=== PATIENT | female | born 1950 | race African-American/Black ===

== ENCOUNTER 2016-09-24 13:39 | Inpatient (IN) ==
--- NOTE | 2016-09-24 16:00 | Emergency Department Note ---
Arrival - Arrival Chief Complaint: Abdominal / Flank Pain Stated Complaint: BLOOD IN ABD ED Nursing Triage Note: Pt states during dialysis (PD) at home she noticed blood in her dialysis cath and pain in her right side starting today. Mode of Arrival: Ambulatory Limitations: No Limitations Source: Patient Time Seen by Provider: 09/24/16 15:50 - History of Present Illness HPI Narrative: This 65-year-old black female with polycystic kidney disease who is a home peritoneal dialysis patient presents after trying to dialyze this morning and getting bloody fluid on return. The patient since beginning dialysis has had severe right upper quadrant discomfort and prior to starting dialysis had similar complaints on the left which persist to this time. The patient did not complete her dialysis because of this situation and still his dialysate onboard. During the process she does not recall anything unusual and has never had something like this occur in the past. She denies chills, fever, nausea, vomiting, or any recent falls or blows to the abdominal cavity. She currently does not appear in any acute distress. Onset (ago): hour(s) (onset of symptoms 2 hours ago.) Allergies/Adverse Reactions: Allergies Allergy/AdvReac Type Severity Reaction Status Date / Time cefuroxime [From Ceftin] Allergy Nausea Verified 09/24/16 13:40 Penicillins Allergy Unknown/Unable Verified 09/24/16 13:40 to obtain Sulfa (Sulfonamide Allergy Unknown/Unable Verified 09/24/16 13:40 Antibiotics) to obtain Home Medications: Home Medications Medication Instructions Recorded Confirmed Type Ferrous Fumarate [Ferrimin 150] 456 mg PO DAILY 02/12/16 02/12/16 History Ondansetron Tab [Zofran Tab] 4 mg PO Q4H PRN 02/12/16 02/12/16 History Potassium Chloride 20 meq PO BID 02/12/16 02/12/16 History Promethazine Tab [Phenergan Tab] 25 mg PO Q6H #14 tablet 02/12/16 Rx Sodium Bicarbonate 325 mg PO BID 02/12/16 02/12/16 History Vit B Cmplx 3/FA/Vit C/Biotin 1 each PO DAILY 02/12/16 02/12/16 History [Nephro-Julianne Rx Tablet] metroNIDAZOLE TAB [Flagyl Cap/Tab] 500 mg PO TID 02/12/16 02/12/16 History Review of System - Review of System 12 point system: reviewed and no additional remarkable complaints except as stated - Review of System Constitutional: Present: as per HPI Gastrointestinal: Present: as per HPI Genitourinary female: Present: as per HPI Medical,Surgical,& Family Hx - Medical History Renal: History of: Dialysis (PD), Renal Failure - Social History Smoking Status: Never smoker Frequency of Alcohol Use: None Type of Drug Use: None Exam Physical Examination: GENERAL: Well developed, well nourished black female in no acute distress. HEENT: Normocephalic. No trauma. Moist mucous membranes. EOMI. PERRLA. NECK: Supple. No adenopathy. CARDIAC: Regular. 2/4 systolic murmur. CHEST: Clear to auscultation. No respiratory distress. ABDOMEN: Soft. Tender right and left upper quadrants. Hyperactive bowel sounds. EXTREMITIES: No trauma. Normal ROM. No pedal edema. SKIN: No diaphoresis. No rash. NEURO: Alert. Neuro intact No focal deficits. Vital Signs: Vital Signs Temperature 97.6 F 09/24/16 16:40 Pulse Rate 70 09/24/16 16:40 Respiratory Rate 20 09/24/16 16:40 Blood Pressure 127/79 09/24/16 16:40 O2 Sat by Pulse Oximetry 96 09/24/16 14:50 Course - Reevaluation(s) Reevaluation #1: Discussed with patient results per studies which would indicate burrowing pancreatitis as possible cause of her bloody dialysate. She will need admission for further evaluation. - Consultations Consultation #1: Discussed with hospitalist service who will admit for further evaluation treatment. Results - Labs CBC & BMP: 09/24/16 15:55 09/24/16 15:55 Labs: I reviewed the laboratory noted the expected abnormal renal numbers but also noted the elevated lipase. - Diagnostic Findings Procedure: CT Abdomen and Pelvis: image reviewed by me, report reviewed by me ( no damage to peritoneal catheter. Status post hysterectomy and cholecystectomy. No evidence of abscess or intra-abdominal injury. Pre- dialysate noted. No interval change from previous CT.) Disposition Clinical Impression: bloody peritoneal dialysate, pancreatitis Case discussed with: patient, patient's family Condition: Stable Instructions: Pancreatitis (ED) Time of Disposition: 18:23
--- NOTE | 2016-09-24 16:26 | CT Report ---
History: Right-sided abdominal pain. Bloody dialysate. Polycystic kidney disease Date: 09/24/2016 Study: CT abdomen and pelvis without contrast Comparison exam: October 15, 2014 study Technique: Spiral CT sections were obtained from the lung bases to the pubic symphysis without contrast. Total DLP measures 240.2 mGy*cm. CT abdomen: The partially visualized lung bases are clear. There is a small amount of pneumoperitoneum under the right hemidiaphragm, though this can be an expected finding in patients who are on peritoneal dialysis such as this one. There is mild to moderate free fluid in both upper quadrants and in the pelvis, though this can also be seen with peritoneal dialysis and is grossly similar to the comparison study. The gallbladder is surgically absent. The liver, spleen, pancreas, bile ducts, and adrenal glands are unremarkable. There is bilateral renal enlargement. There are numerous water density and at least mildly complex partially calcified renal cysts throughout both kidneys, grossly similar to the comparison study. There is no obvious asymmetric new lesion which is highly suspicious for renal cell carcinoma by this noncontrast exam. There is no aneurysm of the mildly calcified abdominal aorta. There is a ventral wall hernia containing fat just superior to the umbilicus. There is a peritoneal dialysis catheter which traverses the anterior abdominal wall immediately inferior to the level of umbilicus and is positioned with its loop in the left mid abdomen. CT pelvis: The appendix is identified and appears normal. There is some free fluid in the pelvis similar to the previous study as discussed above. There is no obvious lymphadenopathy by short axis diameter criteria. There is no obvious hematocrit effect of the free fluid within the pelvis. Impression: Overall the exam is similar to the comparison study. There is free fluid in the upper abdomen and pelvis and minimal pneumoperitoneum which both can be seen with peritoneal dialysis. There is no brayan abscess. The amount of free fluid is similar to the comparison study. There has been prior cholecystectomy and hysterectomy. There is evidence of polycystic kidney disease. There is a ventral wall hernia containing fat. There is no obvious abnormality of the peritoneal dialysis catheter. There has been previous hysterectomy PROCEDURE INTERPRETED AT [facility] DEPARTMENT OF RADIOLOGY Final Report Signed by: Dr. Carmen Cage
[2016-09-24 16:41] LABS: Basophils % 0.3 % (0.0-0.8); Eosinophils # 0.2 10*3/uL (0.0-0.87); Eosinophils % 1.5 % (0.00-10.9); Hematocrit 38.5 VOL% (35.7-47.0); Hemoglobin 12.6 GM/DL (12.0-16.0); Immature Granulocytes % 0.3 %; Immature Granulocytes Absolute 0.03 #; Lymphocytes # 1.8 10*3/uL (1.4-4.0); Lymphocytes % 16.2 % (21.3-54.2); Mean Corpuscular HGB Conc 32.7 GM/DL (32-36); Mean Corpuscular Hemoglobin 28 PG (27-34); Mean Corpuscular Volume 86.9 FL (87-102); Mean Platelet Volume 10.6 FL (9.6-12.0); Monocytes # 0.4 10*3/uL (0.11-0.8); Monocytes % 3.8 % (1.7-12.7); Neutrophils # 8.7 10*3/uL (1.4-7.4); Neutrophils % 77.9 % (38.7-73.9); Platelet Count 228 T/CUMM (130-400); Red Blood Count 4.43 MC/CUMM (3.8-5.5); Red Cell Distribution Width 13.7 % (9.3-17.3); White Blood Count 11.2 T/CUMM (4-12)
[2016-09-24 16:51] LABS: Partial Thromboplastin Time 27.1 SECS (0-40)
[2016-09-24 17:00] LABS: Apearance,Urine CLEAR (Clear); Bilirubin,Urine Negative (Negative); Blood, Urine Small mg/dL (Negative); Glucose,Urine (UA) 50 mg/dL (Negative); Ketones,Urine Negative (Negative); Nitrite,Urine Negative (Negative); Protein,Urine 30 MG/DL; Urine Color Straw (Yellow); Urine Specific Gravity 1.004 (1.001-1.035); Urine Urobilinogen < 2.0 EU/DL (0.2-1.0); WBC,Urine 1 /HPF (0-6)
[2016-09-24 17:11] LABS: Albumin 3.2 G/DL (3.4-5.0); Bilirubin,Total 1.4 MG/DL (0.2-1.0); Calcium 10.5 MG/DL (8.5-10.1); Osmolality,Calculated 293.4 MOS/KG (273-304); Potassium 3.9 MMOL/L (3.5-5.1); Total Protein 7.9 G/DL (6.4-8.3)
[2016-09-24 17:16] LABS: Lactic Acid 0.9 MMOL/L (0.4-2.0)
--- NOTE | 2016-09-24 18:46 | Hospitalist History & Physical ---
Assessment and Plan (1) Peritonitis Status: Acute Assessment and plan: Vancomycin and gentamicin Current Visit: Yes (2) ESRD (end stage renal disease) Status: Acute Assessment and plan: dialysis per Dr Escobar Current Visit: Yes (3) Refusal of blood transfusions as patient is Restorationist Status: Acute Current Visit: Yes (4) Elevated lipase Status: Acute Current Visit: Yes History of Present Illness Chief complaint: Bloody fluid History of present illness: Ms. Baird is a 65 year old female end-stage renal disease who is on peritoneal dialysis at home twice a day. She sees Dr. Escobar. She reports having no fevers but developed very bloody peritoneal fluid today. She has been complaining of some slight abdominal pain. We will send her fluid down for culture and treat her for peritonitis. Home Medications Medication Instructions Recorded Confirmed Type Ferrous Fumarate [Ferrimin 150] 456 mg PO DAILY 02/12/16 02/12/16 History Ondansetron Tab [Zofran Tab] 4 mg PO Q4H PRN 02/12/16 02/12/16 History Potassium Chloride 20 meq PO BID 02/12/16 02/12/16 History Promethazine Tab [Phenergan Tab] 25 mg PO Q6H #14 tablet 02/12/16 Rx Sodium Bicarbonate 325 mg PO BID 02/12/16 02/12/16 History Vit B Cmplx 3/FA/Vit C/Biotin 1 each PO DAILY 02/12/16 02/12/16 History [Nephro-Julianne Rx Tablet] metroNIDAZOLE TAB [Flagyl Cap/Tab] 500 mg PO TID 02/12/16 02/12/16 History Allergies Allergy/AdvReac Type Severity Reaction Status Date / Time cefuroxime [From Ceftin] Allergy Nausea Verified 09/24/16 13:40 Penicillins Allergy Unknown/Unable Verified 09/24/16 13:40 to obtain Sulfa (Sulfonamide Allergy Unknown/Unable Verified 09/24/16 13:40 Antibiotics) to obtain Medical,Surgical,& Family Hx - Medical History Renal: History of: Dialysis (PD), Renal Failure - Surgical History HEENT Surgeries: Surgical HX of: Tonsilectomy & Adenoidectomy Abdominal Surgeries: Surgical HX of: Cholecystectomy Additional Surgical History: Peritoneal dialysis catheter, breast reduction, nasal surgery, gallbladder, tonsils - Family History Family History: Reports;: Family Diabetes, Family Hypertension - Social History Smoking Status: Never smoker (Exposed to secondhand smoke) Frequency of Alcohol Use: None Type of Drug Use: None Marital Status: Single Lives With:: Alone Functional capacity: independent ambulation - Constitutional Constitutional: Present: headache(s). Absent: fever(s) - EENT Eyes: Absent: blurry vision, diplopia Ears: Absent: decreased hearing, ear discharge Nose, mouth and throat: Present: headache(s). Absent: sore throat - Cardiovascular Cardiovascular: Absent: chest pain at rest, dyspnea, dyspnea on exertion, edema - Respiratory Respiratory: Absent: dyspnea, dyspnea on exertion - Gastrointestinal Gastrointestinal: Present: abdominal pain, diarrhea. Absent: constipation, nausea, vomiting - Genitourinary Genitourinary: Absent: difficulty urinating, dysuria - Musculoskeletal Musculoskeletal: Present: back pain - Neurological Neurological: Present: dizziness, headache(s). Absent: focal weakness, syncope - Psychiatric Psychiatric: Absent: anxiety, depression - Endocrine Endocrine: Absent: cold intolerance, heat intolerance - Hematologic/Lymphatic Hematologic/Lymphatic: Absent: easy bleeding, easy bruising Exam - Constitutional Vitals: Period Temp Pulse Resp BP Sys/Jaime Pulse Ox Last 24 Hr 97.5 F-97.6 F 70-85 18-20 127-144/79-89 96-98 General appearance: normal weight, no acute distress - Head Head exam: Present: normal inspection, normocephalic - Eye Eye exam: Present: EOMI. Absent: scleral icterus Pupils: Present: normal accommodation - ENT ENT exam: Present: normal exam, normal external ear exam - Neck Neck exam: Absent: lymphadenopathy, thyromegaly - Respiratory Respiratory exam: Present: clear to auscultation bilaterally. Absent: rhonchi, wheezes - Cardiovascular Cardiovascular exam: Present: regular rate and rhythm. Absent: systolic murmur - GI/Abdominal GI/Abdominal exam: Present: normal bowel sounds, tenderness, soft. Absent: distended, guarding - Extremities Exam Extremities exam: Present: normal inspection, normal capillary refill - Neurological Exam Neurological exam: Present: alert, oriented X3 - Psychiatric Psychiatric exam: Present: normal affect, normal mood Results - Labs CBC & BMP: 09/24/16 15:55 09/24/16 15:55 Lab Results: I have reviewed the past 24 hour labs - Diagnostic Findings Procedure: CT Abdomen and Pelvis: report reviewed by me (No abnormality of dialysis catheter, polycystic kidneys)
[2016-09-24] MEDS ORDERED: GENTAMICIN 80 MG/2 ML VIAL INTRAPERIT ONE (21:00)
[2016-09-24] MEDS ORDERED: VANCOMYCIN 1,000 MG VIAL INTRAPERIT ONE (21:00)
[2016-09-24] MEDS ORDERED: ONDANSETRON 4 MG/2 ML VIAL IV PRN (21:42)
[2016-09-24] MEDS ORDERED: ACETAMINOPHEN 325 MG TABLET PO PRN (21:42)
[2016-09-24] MEDS: LACTULOSE 20 GM/30 ML UDCUP PO SCH (22:00)
[2016-09-24] MEDS ORDERED: ZALEPLON 5 MG CAPSULE PO PRN (22:56)
[2016-09-25] MEDS: SODIUM CHLORIDE 0.45% 1,000 ML IV SCH ×2 (00:32→09:14)
[2016-09-25] MEDS: LACTULOSE 20 GM/30 ML UDCUP PO SCH ×5 (02:44→17:05)
[2016-09-25 05:37] LABS: Neutrophils,Peritoneal Fluid 69 %
[2016-09-25 05:39] LABS: RBC,Peritoneal Fluid > 100000 T/CUMM
[2016-09-25 07:35] LABS: Basophils % 0.6 % (0.0-0.8); Eosinophils # 0.2 10*3/uL (0.0-0.87); Eosinophils % 2.6 % (0.00-10.9); Hematocrit 30.2 VOL% (35.7-47.0); Immature Granulocytes % 0.2 %; Immature Granulocytes Absolute 0.01 #; Lymphocytes # 1.6 10*3/uL (1.4-4.0); Lymphocytes % 24.6 % (21.3-54.2); Mean Corpuscular HGB Conc 33.4 GM/DL (32-36); Mean Corpuscular Hemoglobin 29 PG (27-34); Mean Corpuscular Volume 87.3 FL (87-102); Mean Platelet Volume 10.4 FL (9.6-12.0); Monocytes # 0.4 10*3/uL (0.11-0.8); Monocytes % 6.6 % (1.7-12.7); Neutrophils # 4.3 10*3/uL (1.4-7.4); Neutrophils % 65.4 % (38.7-73.9); Platelet Count 196 T/CUMM (130-400); Red Cell Distribution Width 13.8 % (9.3-17.3)
[2016-09-25 07:46] LABS: Hemoglobin 10.1 GM/DL (12.0-16.0); Red Blood Count 3.46 MC/CUMM (3.8-5.5); White Blood Count 6.5 T/CUMM (4-12)
[2016-09-25] MEDS: PANTOPRAZOLE 40 MG TABLET PO SCH (09:13)
--- NOTE | 2016-09-25 11:25 | Hospitalist Progress Note ---
Assessment and Plan (1) Peritonitis Status: Acute Assessment and plan: Vancomycin and gentamicin with PD change at end of day for two weeks if approved by renal. Bloody peritoneal fluid most likely due to ruptured polycystic kidney cyst Current Visit: Yes (2) ESRD (end stage renal disease) Status: Acute Assessment and plan: peritoneal dialysis per Dr Escobar Current Visit: Yes (3) Refusal of blood transfusions as patient is Alevism Status: Acute Current Visit: Yes (4) Elevated lipase Status: Acute Assessment and plan: no nausea Current Visit: Yes Hospitalist: Subjective Interval history: Patient's peritoneal fluid has started to clear. She still had white cells in her peritoneal fluid. Dr. Escobar will see her today. We will await cultures. Patient did not sleep well last night. She said the Sonata did not work for her we will try Restoril Exam - Constitutional Vitals: Period Temp Pulse Resp BP Sys/Jaime Pulse Ox Last 24 Hr 97.6 F-98.2 F 71-80 16-20 134-150/65-86 99-100 Exam: Heart Rate-[RRR] Lungs-[CTAB] GI-[+bs soft, NT] Ext-[no edema] neuro motor 5/5, alert and oriented times 3 psych normal mood and affect Results - Labs CBC & BMP: 09/25/16 07:21 09/24/16 15:55 Lab Results: I have reviewed the past 24 hour labs Labs: Peritoneal Fluid culture negative, blood cultures 2 pending Specialty Discharge - Follow Up or Referrals
[2016-09-25] MEDS: FLUTICASONE 50 MCG NASAL SPRAY 16 GM BOTTLE BOTH NARES SCH (12:44)
[2016-09-25] MEDS ORDERED: BENZONATATE 100 MG CAPSULE PO PRN (14:06)
[2016-09-25] MEDS ORDERED: ALBUTEROL 2.5 MG/3 ML NEB RESP TX PRN (14:06)
--- NOTE | 2016-09-25 14:11 | Nephrology Consult Note ---
History of Present Illness Chief complaint: Abdominal pain, hemoperitoneum History of present illness: Ms. Baird is a 65 year old female with history of ESRD due to polycystic kidney disease who currently does well on peritioneal dialysis. The patient was in her usual state of health when she noticed blood in her dialysate drainage associated with right side abdominal pain. She was intructed to be evaluated in the emergency room and noted to have an elevated WBC on the peritoneal fluid. No fevers reported. No shortness of breath or chest pain. No fevers. Today, she is feeling a little better. Home Medications Medication Instructions Recorded Confirmed Type Potassium Chloride 20 meq PO BID 02/12/16 09/25/16 History Albuterol Sulfate [Proair HFA] 2 puff INH Q4H PRN 09/25/16 09/25/16 History Benzonatate 100 mg PO TID PRN 09/25/16 09/25/16 History Budesonide/Formoterol 160-4.5 2 puff INH BID 09/25/16 09/25/16 History [Symbicort 160-4.5] Calcitriol 0.25 mcg PO DAILY 09/25/16 09/25/16 History Pantoprazole Tab [Protonix Tab] 20 mg PO BID 09/25/16 09/25/16 History Saccharomyces Boulardii [Probiotic] 250 mg PO DAILY 09/25/16 09/25/16 History Sucroferric Oxyhydroxide [Velphoro 500 mg PO TID W/MEALS 09/25/16 09/25/16 History Chew Tab] Vit B Cmplx 3/FA/Vit C/Biotin 1 each PO DAILY 09/25/16 09/25/16 History [Nephro-Julianne Rx Tablet] Allergies Allergy/AdvReac Type Severity Reaction Status Date / Time cefuroxime [From Ceftin] Allergy Nausea Verified 09/24/16 13:40 Penicillins Allergy Unknown/Unable Verified 09/24/16 13:40 to obtain Sulfa (Sulfonamide Allergy Unknown/Unable Verified 09/24/16 13:40 Antibiotics) to obtain Medical,Surgical,& Family Hx - Medical History Cardio: History of: CHF Respiratory: History of: Asthma, COPD Renal: History of: Dialysis (PD), Renal Failure - Surgical History HEENT Surgeries: Surgical HX of: Tonsilectomy & Adenoidectomy Abdominal Surgeries: Surgical HX of: Cholecystectomy Reproductive Surgeries: Surgical HX of;: Breast Surgery (reduction), Hysterectomy - Family History Family History: Reports;: Family Diabetes, Family Hypertension Denies;: Family Anesthesia Reaction, Family Cancer, Family Heart Disease, Family Hematology, Family Psychiatric Problems, Family Stroke, Additional Family History - Social History Smoking Status: Never smoker Frequency of Alcohol Use: None Type of Drug Use: None Review of Systems Constitutional: fatigue, no anorexia, no chills, no fever(s) Respiratory: no dyspnea Gastrointestinal: abdominal pain, cramping, nausea, no bloating Genitourinary: no dysuria Exam - Vital Signs Vital signs: Period Temp Pulse Resp BP Sys/Jaime Pulse Ox Last 24 Hr 97.6 F-98.2 F 71-80 16-20 125-150/65-86 98-100 - General Appearance General appearance: well-developed, well-nourished EENT: ATNC Neck: no carotid bruit, supple Respiratory: clear Cardiology: no murmurs, no edema, regular rate, regular rhythm Gastrointestinal: normoactive bowel sounds Integumentary: no rash Neurologic: alert and oriented x3 Musculoskeletal: no deformities, no erythema Psychiatric: mood/affect appropriate Results - Labs CBC & BMP: 09/25/16 07:21 09/24/16 15:55 Assessment and Plan (1) Peritonitis Status: Acute Assessment and plan: Continue with Abx. Check cell count and differential Current Visit: Yes (2) ESRD (end stage renal disease) Status: Chronic Current Visit: Yes (3) Refusal of blood transfusions as patient is Roman Catholic Status: Chronic Current Visit: Yes Specialty Discharge - Follow Up or Referrals
[2016-09-25] MEDS ORDERED: NON-FORMULARY MEDICATION (Sucroferric Oxyhydroxide [Velphoro Chew Tab] 500 MG) PO SCH (17:00)
[2016-09-25] MEDS ORDERED: GENTAMICIN 80 MG/2 ML VIAL INTRAPERIT SCH (21:00)
[2016-09-25] MEDS ORDERED: TEMAZEPAM 15 MG CAPSULE PO SCH (21:00)
[2016-09-25] MEDS: POTASSIUM CHLORIDE 20 MEQ TABLET PO SCH (22:14)
[2016-09-25] MEDS: PANTOPRAZOLE 20 MG TABLET PO SCH (22:19)
[2016-09-25] MEDS: BUDESONIDE/FORMOTEROL 160-4.5 INHALER 6 GM INH SCH (22:21)
[2016-09-26] MEDS: LACTULOSE 20 GM/30 ML UDCUP PO SCH ×4 (01:11→14:32)
[2016-09-26] MEDS: SODIUM CHLORIDE 0.45% 1,000 ML IV SCH ×2 (01:28→13:56)
[2016-09-26 07:31] LABS: Calcium 8.8 MG/DL (8.5-10.1); Osmolality,Calculated 297.1 MOS/KG (273-304); Potassium 4.1 MMOL/L (3.5-5.1)
[2016-09-26] MEDS ORDERED: CALCITRIOL 0.25 MCG CAPSULE PO SCH (09:00)
[2016-09-26] MEDS ORDERED: LACTOBACILLUS ACIDOPHILUS/BULGARICUS CAPLET PO SCH (09:00)
[2016-09-26] MEDS ORDERED: MULTIVITAMIN (BEROCCA) TABLET PO SCH (09:00)
[2016-09-26] MEDS: PANTOPRAZOLE 20 MG TABLET PO SCH (09:45)
[2016-09-26] MEDS: BUDESONIDE/FORMOTEROL 160-4.5 INHALER 6 GM INH SCH (09:45)
[2016-09-26] MEDS: FLUTICASONE 50 MCG NASAL SPRAY 16 GM BOTTLE BOTH NARES SCH (09:45)
[2016-09-26] MEDS: PANTOPRAZOLE 40 MG TABLET PO SCH (09:46)
[2016-09-26] MEDS: POTASSIUM CHLORIDE 20 MEQ TABLET PO SCH (09:46)
[2016-09-26 11:45] VITALS: BP 143/73
--- NOTE | 2016-09-26 12:02 | Discharge Summary ---
Hospital Course - Hospital Course Hospital Course: 65-year-old -[place] female that is on PD dialysis presented with bloody peritoneal fluid and abdominal pain. The bleeding most likely was due to a ruptured cyst as she has polycystic kidneys. Her RBCs were greater than 100,000 pH was 8 and her WBCs were 289. Her fluid culture from her peritoneal fluid was negative no growth. Blood cultures 2 are negative no growth. White count on admission was 11.2 is now down to 6.5. Patient was treated successfully with Vancomycin and gentamicin. Dr. Escobar was consulted and recommends 3 weeks of treatment through [facility] - Time spent with patient Time with patient DS: Less than 30 minutes Diagnosis - Discharge Diagnosis (1) Peritonitis Status: Acute (2) ESRD (end stage renal disease) Status: Chronic (3) Refusal of blood transfusions as patient is Voodoo Status: Chronic (4) Elevated lipase Status: Acute Specialty Discharge - Follow Up or Referrals Discharge Plan - Discharge Data Disposition: Disch To Home/Self Care Condition at Discharge: Stable Discharge Diet: low salt diet Activity: resume usual activities as tolerated Hygiene: no restrictions Weight Bearing at Discharge: full weight bearing - Discharge Medications New Temazepam [Restoril] 15 mg PO BEDTIME #30 capsule Gentamicin Inj [Garamycin Inj] 40 mg INTRAPERIT BEDTIME vial Vancomycin Inj 1,000 mg INTRAPERIT Q72H vial Continue Potassium Chloride 20 meq PO BID Sucroferric Oxyhydroxide [Velphoro Chew Tab] 500 mg PO TID W/MEALS Saccharomyces Boulardii [Probiotic] 250 mg PO DAILY Budesonide/Formoterol 160-4.5 [Symbicort 160-4.5] 2 puff INH BID Albuterol Sulfate [Proair HFA] 2 puff INH Q4H PRN PRN Reason: Shortness Of Breath/Wheezing Vit B Cmplx 3/FA/Vit C/Biotin [Nephro-Julianne Rx Tablet] 1 each PO DAILY Calcitriol 0.25 mcg PO DAILY Pantoprazole Tab [Protonix Tab] 20 mg PO BID Benzonatate 100 mg PO TID PRN PRN Reason: Cough - Follow Up or Referral Follow Up: Darin Escobar Jr., MD [Physician] - (as scheduled ) - Forms/Instructions Instructions: Pancreatitis (ED) Additional Discharge Instructions: vancomycin and gentamicin per [facility] [place] protocol for 3 weeks Exam - Constitutional Vitals: Period Temp Pulse Resp BP Sys/Jaime Pulse Ox Last 24 Hr 97.0 F-98.2 F 64-78 16-19 119-157/58-78 100-100 General appearance: normal weight, no acute distress - Respiratory Respiratory exam: Present: clear to auscultation bilaterally. Absent: rhonchi, wheezes - Cardiovascular Cardiovascular exam: Present: regular rate and rhythm - GI/Abdominal GI/Abdominal exam: Present: soft. Absent: tenderness Discharge Results Labs on day of discharge: Labs from last 24 hours 09/26/16 09/26/16 06:40 06:40 Sodium 142 Potassium 4.1 Chloride 103 Carbon Dioxide 24 Anion Gap 19.1 H BUN 58 H Creatinine 11.30 H GFR Calculation 4 BUN/Creatinine Ratio 5.00 L Glucose 88 Calculated Osmolality 297.1 Calcium 8.8 Fluid Tot Cell Count 100 Fluid Neutrophils 30 Fluid Lymphocytes 14 Fluid Monocytes 49 Dialysate WBC 135 Dialysate RBC 3231 DS: Provider Date of admission: 09/24/16 18:36 Primary care physician: Yandy Ragland M.D. Attending physician on admission: Jessica Romeo MD Consults: 09/24/16 18:42 Consult to Pharmacy [CONS] Routine Reason for Pharmacy Consult: Dose/Manage Vancomycin 09/24/16 21:42 Consult to Pharmacy [CONS] Routine Reason for Pharmacy Consult: Dose/Manage Vancomycin Dose/Manage Gentamicin Comment: please dose for peritoneal infusion Consult to Physician [CONS] Routine Comment: peritonitis Consulting Provider: Darin Escobar Jr. Date Notified: 09/25/16 Time Notified: 09:26 Consult Notification Comment: delia becerra a message to call me back 09/25/16 11:33 Consult to Case Mgmt/Social Srvs [CONS] Routine Reason for Case Mgmt/Social Srvs: Other Consult Comment: home abx for two weeks, vanc and gent with last pd of the day Discharging clinician: Jessica Romeo MD
[2016-09-27] MEDS ORDERED: VANCOMYCIN 1,000 MG VIAL INTRAPERIT SCH (21:00)
== END 2016-09-26 15:15 | disposition home or self-care (01) | DRG 371 ==
LOC: N.ED 13:39 → N.EDINP 18:36 → N.5E 21:41
PROVIDERS: ADMIT Internal Medicine; ATTEND Internal Medicine